=== PATIENT | male | born 1945 | race Caucasian/White ===

== ENCOUNTER 2022-07-21 11:21 | Outpatient (CLI) | payer MEDICARE, OTHER, SELFPAY | END 2022-07-21 11:22 | disposition home or self-care (01) | PROVIDERS: PCP Family Medicine; Visit Provider Internal Medicine | DX: C61 Malignant neoplasm of prostate (principal) | CPT/HCPCS: 72195 ==

== ENCOUNTER 2022-09-03 09:30 | Outpatient (RCR) | payer MEDICARE, OTHER, SELFPAY ==
[2022-08-22 10:00] VITALS: BP 138/83; PULSE 61; RESP 16; TEMP 36.6; O2SAT 98
[2022-08-22] MEDS: cefTRIAXone 2 GM VIAL IVPB (10:56)
[2022-08-22] MEDS: SODIUM CHLORIDE 0.9 % (FLUSH) 10 ML SYRINGE IVF (10:56)
[2022-08-22] MEDS: 0.9 % SODIUM CHLORIDE 250 ml IV (10:56)
[2022-08-23] MEDS: SODIUM CHLORIDE 0.9 % (FLUSH) 10 ML SYRINGE IVF (09:57)
[2022-08-23] MEDS: 0.9 % SODIUM CHLORIDE 250 ml IV (09:57)
[2022-08-23] MEDS: cefTRIAXone 2 GM VIAL IVPB (09:57)
[2022-08-23 10:03] VITALS: BP 124/70; PULSE 57; RESP 18; TEMP 37; O2SAT 98
[2022-08-24 09:40] VITALS: BP 157/64; PULSE 59; RESP 18; TEMP 36.2; O2SAT 99
[2022-08-24] MEDS: 0.9 % SODIUM CHLORIDE 250 ml IV (09:44)
[2022-08-24] MEDS: cefTRIAXone 2 GM VIAL IVPB (09:44)
[2022-08-25 09:46] VITALS: BP 131/78; PULSE 60; RESP 16; TEMP 36.2; O2SAT 97
[2022-08-25] MEDS: cefTRIAXone 2 GM VIAL IVPB ×2 (10:02→10:03)
[2022-08-25] MEDS: 0.9 % SODIUM CHLORIDE 250 ml IV (10:03)
[2022-08-25] MEDS: SODIUM CHLORIDE 0.9 % (FLUSH) 10 ML SYRINGE IVF (10:03)
--- NOTE | 2022-08-25 15:01 | ONC.NURNOTE ---
Midline removed from right upper arm without and complications. 8 cm line removed intact with end cut. Arm circumference 36cm
[2022-08-26 09:29] VITALS: BP 147/77; PULSE 59; RESP 16; TEMP 36.1; O2SAT 98
[2022-08-26 09:52] LABS: Basophils Absolute Auto 0.06 K/uL (0.00-0.30); Basophils Percent Auto 0.6 % (0.0-3.0); Eosinophils Absolute Auto 0.25 K/uL (0.00-0.50); Eosinophils Percent Auto 2.3 % (0.0-7.0); Hematocrit 33.1 % (37.0-53.0); Hemoglobin* 10.3 gm/dL (13.5-17.5); Immature Granulocytes Abs Auto 0.17 K/uL (0.00-0.30); Lymphocytes Percent Auto 10.8 % (20-44); Mean Corpuscular HGB Conc 31 gm/dL (32-36); Mean Corpuscular Hemoglobin 31 pg (26-34); Mean Corpuscular Volume 100 fL (80-100); Neutrophils Percent Auto 78.7 % (42.0-72.0); Platelet Count* 358 K/uL (140-440); RDW Coefficient of Variation % 13.5 % (11.5-15.5); Red Blood Count 3.31 m/uL (4.30-5.90); White Blood Count* 10.69 K/uL (4.50-11.00)
[2022-08-26 10:09] LABS: Alanine Aminotransferase* 33 U/L (4-50); Alkaline Phosphatase* 152 U/L (40-150); Creatinine* 1.2 mg/dL (0.5-1.5); Estimated Glomerular Filt Rate 63 ml/min
[2022-08-26] MEDS: cefTRIAXone 2 GM VIAL IVPB (10:13)
[2022-08-26 10:15] LABS: Slide Review Reflex No
[2022-08-27 10:37] VITALS: BP 143/90; PULSE 59; RESP 16; TEMP 35.9
[2022-08-27] MEDS: SODIUM CHLORIDE 0.9 % (FLUSH) 10 ML SYRINGE IVF ×2 (10:47→11:28)
[2022-08-27] MEDS: cefTRIAXone 2 GM VIAL IVPB (10:47)
[2022-08-28 08:44] VITALS: BP 164/78; PULSE 59; RESP 16; TEMP 35.7; O2SAT 99
[2022-08-28] MEDS: SODIUM CHLORIDE 0.9 % (FLUSH) 10 ML SYRINGE IVF (08:50)
[2022-08-28] MEDS: cefTRIAXone 2 GM VIAL IVPB (08:50)
[2022-08-29 13:02] VITALS: BP 132/61; PULSE 68; RESP 16; TEMP 36.6; O2SAT 96
[2022-08-29] MEDS: cefTRIAXone 2 GM VIAL IVPB (13:25)
[2022-08-29] MEDS: 0.9 % SODIUM CHLORIDE 250 ml IV (14:46)
--- NOTE | 2022-08-30 09:24 | W.PC.ACHO ---
Registration Status: REG RCR Primary Language: Preferred Language: Active Medications Generic Name Dose Route Start Last Admin Trade Name Freq PRN Reason Stop Dose Admin Ceftriaxone Sodium 2 gm 08/22/22 10:30 08/29/22 13:25 Ceftriaxone 2 Gm Vial IVPB 09/04/22 10:29 2 gm Q24H NI Administration Sodium Chloride 10 ml 08/22/22 10:08 08/28/22 08:50 Sodium Chloride 0.9 % (Flush) 10 Ml Syringe IVF 10 ml .FLUSH PRN Administration Sodium Chloride 250 ml 08/22/22 10:08 08/29/22 14:46 0.9 % Sodium Chloride 250 Ml IV 250 ml . DIRECTED PRN Administration Respiratory Pulse Oximetry 96 Oxygen Delivery Method Room Air
[2022-08-30] MEDS: cefTRIAXone 2 GM VIAL IVPB (09:59)
[2022-08-31] MEDS: SODIUM CHLORIDE 0.9 % (FLUSH) 10 ML SYRINGE IVF (09:35)
[2022-08-31] MEDS: cefTRIAXone 2 GM VIAL IVPB (09:35)
[2022-08-31] MEDS: 0.9 % SODIUM CHLORIDE 250 ml IV (09:35)
[2022-08-31 10:46] VITALS: BP 136/70; PULSE 59; RESP 16; O2SAT 98
--- NOTE | 2022-08-31 10:49 | PC.NURSE ---
Abx infused with no issues. VSS. Midline IV flushed well/wrapped. discharged per self.
[2022-09-01 09:30] VITALS: BP 146/74; PULSE 64; RESP 16; TEMP 35.7; O2SAT 97
[2022-09-01] MEDS: 0.9 % SODIUM CHLORIDE 250 ml IV (09:42)
[2022-09-01] MEDS: SODIUM CHLORIDE 0.9 % (FLUSH) 10 ML SYRINGE IVF (09:42)
[2022-09-01] MEDS: cefTRIAXone 2 GM VIAL IVPB (09:42)
[2022-09-02 09:40] VITALS: BP 133/74; PULSE 65; RESP 16; TEMP 36.4; O2SAT 98
[2022-09-02] MEDS: cefTRIAXone 2 GM VIAL IVPB (09:54)
[2022-09-02] MEDS: 0.9 % SODIUM CHLORIDE 250 ml IV (09:54)
[2022-09-02 10:26] LABS: Basophils Absolute Auto 0.07 K/uL (0.00-0.30); Eosinophils Absolute Auto 0.23 K/uL (0.00-0.50); Eosinophils Percent Auto 3.4 % (0.0-7.0); Hematocrit 34.4 % (37.0-53.0); Hemoglobin* 10.7 gm/dL (13.5-17.5); Immature Granulocytes Abs Auto 0.04 K/uL (0.00-0.30); Lymphocytes Percent Auto 12.1 % (20-44); Mean Corpuscular HGB Conc 31 gm/dL (32-36); Mean Corpuscular Hemoglobin 31 pg (26-34); Mean Corpuscular Volume 99 fL (80-100); Monocytes Percent Auto 9.2 % (0.0-11.0); Neutrophils Percent Auto 73.7 % (42.0-72.0); Platelet Count* 376 K/uL (140-440); RDW Coefficient of Variation % 13.5 % (11.5-15.5); Red Blood Count 3.48 m/uL (4.30-5.90); White Blood Count* 6.76 K/uL (4.50-11.00)
[2022-09-02 10:27] LABS: Slide Review Reflex No
[2022-09-02 10:43] LABS: Alkaline Phosphatase* 113 U/L (40-150); Creatinine* 1.3 mg/dL (0.5-1.5); Estimated Glomerular Filt Rate 57 ml/min
[2022-09-02 10:44] LABS: Alanine Aminotransferase* 18 U/L (4-50)
--- NOTE | 2022-09-02 12:38 | ONC.NURNOTE ---
Weapons Officer called infectious disease at [facility] today, pt wondering if he can have his Rocephin infusion at [facility] on 09/04/22 since he will be there all day for appts. RN in Infectious disease will reach out to pt to schedule. Per RN at [facility], they will place a new peripheral IV on .
[2022-09-03 09:30] VITALS: BP 143/82; PULSE 60; RESP 16; TEMP 36.1; O2SAT 98
[2022-09-03] MEDS: SODIUM CHLORIDE 0.9 % (FLUSH) 10 ML SYRINGE IVF (09:46)
[2022-09-03] MEDS: 0.9 % SODIUM CHLORIDE 250 ml IV (09:46)
[2022-09-03] MEDS: cefTRIAXone 2 GM VIAL IVPB (09:47)
== END 2023-02-18 23:59 | disposition home or self-care (01) ==
LOC: CCIC 09:30
PROVIDERS: PCP Family Medicine; Referring Provider Family Medicine; Visit Provider Clinical Nurse Specialist
DX: L03.211 Cellulitis of face (principal)
CPT/HCPCS: 36415; 36589; 82565; 84075; 84460; 85025; 96365; 99211; J0696; J7050